=== PATIENT | male | born 1985 | race Caucasian/White ===

== ENCOUNTER 2020-04-28 06:38 | Emergency (ER) | payer SELFPAY ==
[2020-04-28 06:49] VITALS: BP 144/106; PULSE 86; RESP 20; TEMP 36.6; O2SAT 97
--- NOTE | 2020-04-28 07:07 | ED.GENADULT ---
HPI - General Adult General Chief complaint: Skin/Abscess/Foreign Body Stated complaint: fever Time Seen by Provider: 04/28/20 07:00 History of Present Illness HPI narrative: Patient is a 34-year-old gentleman who presents to emergency department with chief complaint of insect bite to forehead. The patient states that started a couple days ago noticed that he has redness and swelling in his forehead. Patient reports that there is been no drainage from the site states he has had a subjective fever at home but has not had an actual measured fever. Patient denies chest pain denies shortness of breath denies body aches denies lymphangitis. Related Data Allergies Allergy/AdvReac Type Severity Reaction Status Date / Time Penicillins Allergy Rash Verified 04/28/20 06:56 Review of Systems Review of Systems: Narrative: A 10 system review of systems was completed on the patient and is negative except for what is stated in the HPI. Nursing and ancillary documentation was reviewed. PMFSH Social History Social History Gender identity (if verbalized by the patient): Male Comments Patient has no significant past medical history Social history the patient denies illicit drug use Exam Narrative: Exam Narrative: GENERAL: Well-appearing, well-nourished, and in no acute distress. HEAD: Normocephalic, atraumatic. There is a area of erythema in the right forehead approximately quarter sized there is no fluctuance noted there is no purulent drainage. EYES: PERRLA and EOMI. ENT: Nares clear, no rhinorrhea or epistaxis. Mucous membranes moist. NECK: Supple. CHEST: Clear to auscultation. No respiratory distress. HEART: Regular rate and rhythm. No murmur heard. Normal peripheral pulses. ABDOMEN: Soft, nontender, nondistended, normal active bowel sounds. EXTREMITIES: Normal range of motion. No edema. SKIN: Warm, dry, no rash. NEURO: No focal deficits. Alert and oriented x3. PSYCH: Normal mood and affect. Course Vital Signs Vital signs: Vital Signs Temperature 36.6 C 04/28/20 06:49 Pulse Rate 86 04/28/20 06:49 Respiratory Rate 20 04/28/20 06:49 Blood Pressure 144/106 H 04/28/20 06:49 Pulse Oximetry 97 04/28/20 06:49 Temperature 36.6 C 04/28/20 06:49 Pulse Rate 86 04/28/20 06:49 Respiratory Rate 20 04/28/20 06:49 Blood Pressure 144/106 H 04/28/20 06:49 Pulse Oximetry 97 04/28/20 06:49 Medical Decision Making Vital Signs Vital Signs: Vital Signs Temperature 36.6 C 04/28/20 06:49 Pulse Rate 86 04/28/20 06:49 Respiratory Rate 20 04/28/20 06:49 Blood Pressure 144/106 H 04/28/20 06:49 Pulse Oximetry 97 04/28/20 06:49 Temperature 36.6 C 04/28/20 06:49 Pulse Rate 86 04/28/20 06:49 Respiratory Rate 20 04/28/20 06:49 Blood Pressure 144/106 H 04/28/20 06:49 Pulse Oximetry 97 04/28/20 06:49 Discharge Plan Discharge Clinical Impression: Cellulitis Qualifiers: Site of cellulitis: head Qualified Code(s): L03.811 - Cellulitis of head [any part, except face] Patient Disposition: Home, Self-Care Condition: Stable Instructions: Antibiotic Form, Cellulitis (ED) Prescriptions: New sulfamethoxazole-trimethoprim [Bactrim DS] 800-160 mg tablet 1 tablet PO Q12H Qty: 14 RF: 0 Follow-up/Referrals: PHYSICIAN,DRILL PRESS OPERATOR HELPER [Primary Care Provider] - Elliott Cali DO [Physician] - Time of Disposition: 07:10
[2020-04-28 07:22] VITALS: BP 144/98; RESP 14
== END 2020-04-28 07:20 | disposition home or self-care (01) ==
PROVIDERS: Emergency Provider Emergency Medicine
DX: L03.811 Cellulitis of head [any part, except face] (principal)
CPT/HCPCS: 99283

== ENCOUNTER 2020-04-30 22:31 | Emergency (ER) | payer SELFPAY ==
[2020-04-30 22:31] VITALS: BP 149/95; PULSE 101; RESP 20; TEMP 36.2; O2SAT 98
--- NOTE | 2020-04-30 22:50 | ED.SKABFB ---
HPI - Skin/Abscess/Foreign Bdy General Chief complaint: Skin/Abscess/Foreign Body Stated complaint: bug bite on head Time Seen by Provider: 04/30/20 22:42 Source: patient Mode of arrival: ambulatory Limitations: no limitations History of Present Illness HPI narrative: Patient is 34 years old white male presents with forehead the skin lesion started few days ago. Started on Bactrim 2 days ago in our emergency room. Back to our emergency room again because the redness is not getting better. Patient denies any fever, chills, nausea, vomiting. Patient believes what he have in his forehead is secondary to flea bites. Patient reports that he have a lot of fleas in his house. Related Data Allergies Allergy/AdvReac Type Severity Reaction Status Date / Time Penicillins Allergy Rash Verified 04/30/20 22:37 Review of Systems Review of Systems: Narrative: General appearance: Well-developed, well-nourished Skin: Normal color Head: Normocephalic, nontraumatic Eyes: Clear conjunctiva ENT: Oropharynx normal, ears normal, nose normal Neck: Supple, nontender Chest and respiratory: Airway patent, no respiratory distress, no accessory muscle use Heart: Regular rate/rhythm Abdomen: Soft, nontender, no organomegaly, quiet bowel sounds Vascular: Normal peripheral pulses, normal capillary refill. Musculoskeletal: Normal range of motion, nontender back Neurologic: Alert and oriented ?3, [employer] is normal as tested, no gross motor deficit PMFSH Social History Social History Gender identity (if verbalized by the patient): Male Exam Narrative: Exam Narrative: General appearance: Well-developed, well-nourished Skin: Normal color, forehead exam showed 1-1/2 cm vertical scab at the middle of the forehead surrounded by erythema, no discharge, positive fluctuation. Head: Normocephalic, nontraumatic Chest and respiratory: Airway patent, no respiratory distress, no accessory muscle use Heart: Regular rate/rhythm Neurologic: Alert and oriented ?3, [employer] is normal as tested, no gross motor deficit Course Course Emergency Course: Stable Vital Signs Vital signs: Vital Signs Temperature 36.2 C L 04/30/20 22:31 Pulse Rate 101 H 04/30/20 22:31 Respiratory Rate 20 04/30/20 22:31 Blood Pressure 149/95 H 04/30/20 22:31 Pulse Oximetry 98 04/30/20 22:31 Temperature 36.2 C L 04/30/20 22:31 Pulse Rate 101 H 04/30/20 22:31 Respiratory Rate 20 04/30/20 22:31 Blood Pressure 149/95 H 04/30/20 22:31 Pulse Oximetry 98 04/30/20 22:31 Procedures Abscess I/D Forehead: Date of Incision: 04/30/20 Time of Incision: 23:13 Local Anesthetic: lidocaine 1% and with epi Amount of anesthesia used (mL): 1 Technique: needle aspiration (Needle aspiration showed no purulent discharge) Irrigation: No MDM - Skin/Abscess/Foreign Bdy MDM Narrative Medical decision making narrative: Forehead cellulitis/impetigo is my concern. 18-gauge needle used for possible pus collection, with negative results. Critical Care Time Critical Care Time Critical Care Time: No Discharge Plan Discharge Clinical Impression: Cellulitis Qualifiers: Site of cellulitis: face Qualified Code(s): L03.211 - Cellulitis of face Patient Disposition: Home, Self-Care Condition: Stable Instructions: Cellulitis (ED)
[2020-04-30] MEDS: LIDO 2%/EPINEPHRINE 1:100,000 20 ML VIAL (23:08)
== END 2020-04-30 23:34 | disposition home or self-care (01) ==
PROVIDERS: Emergency Provider Emergency Medicine
DX: L03.211 Cellulitis of face (principal)
CPT/HCPCS: 10160; 99283

== ENCOUNTER 2021-03-12 23:41 | Emergency (ER) | payer SELFPAY ==
--- NOTE | ~2021-03-12 | CT_ITS ---
EXAMINATION: CT abdomen pelvis wo con DATE: 03/13/2021 00:40 INDICATION: Left flank pain. TECHNIQUE: Computed tomography (CT) of the abdomen and pelvis was performed without intravenous contr ast. Automated exposure control and iterative reconstruction technique were employed. The dose-length product was 514.94 mGy-cm. COMPARISON: None. FINDINGS: The visualized portions of the lung bases demonstrate minimal atelectasis. No pleural effus ion. The heart size is normal. No pericardial effusion. The liver, gallbladder, spleen, pancreas, adr enal glands, and right kidney are normal. There is a 2 mm stone in left kidney. There is mild left hy dronephrosis. There is a 3 mm stone in proximal left ureter. There is diverticulosis of the colon wit hout evidence of diverticulitis. There are no dilated loops of bowel. The appendix is normal. There a re no pathologically enlarged lymph nodes. There is no free intraperitoneal fluid. There is thoracolu mbar dextroscoliosis. IMPRESSION: 1. 3 mm stone in proximal left ureter with mild left hydronephrosis. 2. 2 mm nonobstructing left kidney stone. Reviewed, dictated and finalized at location A. ARE OFFICER
--- NOTE | ~2021-03-12 | XR_ITS ---
EXAMINATION: XR abdomen/kub 1V DATE: 03/13/2021 02:19 INDICATION: Left ureteral stone. TECHNIQUE: A supine view of the abdomen on 2 radiographs was obtained. COMPARISON: CT abdomen and pelvis 03/13/2021 FINDINGS: There are no dilated loops of bowel. IMPRESSION: 1. No visible urolithiasis. Reviewed, dictated and finalized at location A. TOOL MAKER IMPRESSION: 1. No visible urolithiasis.
[2021-03-12 23:48] VITALS: BP 154/111; PULSE 111; RESP 20; TEMP 36.8; O2SAT 100
[2021-03-13] MEDS: HYDROmorphone HCL INJ (*CRX) 1 MG/ML SYR IV PUSH (00:30)
[2021-03-13] MEDS: ONDANSETRON INJ 4 MG/2 ML VIAL IV PUSH (00:30)
[2021-03-13] MEDS: SODIUM CHLORIDE 0.9% IV 1,000 ML 150 ML IV CONT (00:30)
[2021-03-13 00:32] LABS: Basophils Absolute Auto 0.1 K/mm3 (0.0-0.1); Basophils Percent Auto 0.9 % (0.2-1.2); Eosinophils Absolute Auto 0.1 K/mm3 (0-0.3); Hematocrit 47.6 % (42.0-52.0); Immature Granulocyte Absolute 0.03 K/mm3 (0.00-0.031); Immature Granulocyte Percent A 0.2 % (0-0.5); Lymphocytes Absolute Auto 3.71 K/mm3 (0.9-3.2); Lymphocytes Percent Auto 26.8 % (18.3-44.2); Mean Corpuscular HGB Conc 35.7 g/dl (32-36); Mean Corpuscular Volume 89.5 fl (80-100); Mean Platelet Volume 12.4 fl (7.4-10.4); Monocytes Absolute Auto 0.7 K/mm3 (0.1-0.6); Monocytes Percent Auto 5.3 % (2.6-8.5); Neutrophils Absolute Auto 9.1 K/mm3 (1.3-6.7); Neutrophils Percent Auto 65.8 % (45.5-73.1); Platelet Count Result 280 k/mm3 (150-375); Red Blood Count 5.32 M/mm3 (4.6-6.20); Red Cell Distribution Width 12.9 % (11.5-14.5); White Blood Count 13.9 K/mm3 (4.5-10.0)
[2021-03-13 00:33] VITALS: BP 145/99; PULSE 113; RESP 22; O2SAT 99
--- NOTE | 2021-03-13 00:33 | PC.NURSE ---
Pt unable to provide urine sample at this time. Fluids infusing. Pt given urinal. Pt to CT scan via stretcher.
[2021-03-13 00:49] LABS: Alanine Aminotransferase 21 U/L (4-50); Alkaline Phosphatase 71 U/L (38-126); Anion Gap 15 mmol/L (8-16); Aspartate Amino Transferase 24 U/L (17-59); Bilirubin,Total 1.3 mg/dL (0.2-1.3); Blood Urea Nitrogen 12 mg/dL (9-20); Calcium 9.5 mg/dL (8.4-10.2); Carbon Dioxide 21 mmol/L (22-30); Chloride 100 mmol/L (98-107); Estimated CRCL calculation 59 ml/min; Estimated Glomerular Filt Rate 53; Glucose 147 mg/dL (65-110); Potassium 2.8 mmol/L (3.4-5.0); Sodium 136 mmol/L (137-145)
--- NOTE | 2021-03-13 01:15 | ED.BACK ---
HPI - Back Pain/Injury General Chief Complaint: Back Pain/Injury <Zaid Mace MD - Last Filed: 03/13/21 01:27> Stated Complaint: back pain <Zaid Mace MD - Last Filed: 03/13/21 01:27> Time Seen by Provider: 03/12/21 23:50 <Zaid Mace MD - Last Filed: 03/13/21 01:27> Source: patient <Zaid Mace MD - Last Filed: 03/13/21 01:27> Mode of arrival: ambulatory <Zaid Mace MD - Last Filed: 03/13/21 01:27> Limitations: no limitations <Zaid Mace MD - Last Filed: 03/13/21 01:27> History of Present Illness HPI Narrative: 35-year-old with no major medical problems here with complaints of severe left flank pain started about 1030 this morning. Patient states that his pain is intense associated with some nausea. He denies any fever or chills. 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 No previous history of kidney stones or back injury. <Zaid Mace MD - Last Filed: 03/13/21 01:27> MD elicited complaint: back pain <Zaid Mace MD - Last Filed: 03/13/21 01:27> Onset (ago): hour(s) (10) <Zaid Mace MD - Last Filed: 03/13/21 01:27> Timing: constant <Zaid Mace MD - Last Filed: 03/13/21 01:27> Severity: severe <Zaid Mace MD - Last Filed: 03/13/21 01:27> Similar Symptoms Previously: No <MD Vaishali Kraus Last Filed: 03/13/21 01:27> Quality: sharp <MD Vaishali Kraus Last Filed: 03/13/21 01:27> Location: left flank <MD Vaishali Kraus Last Filed: 03/13/21 01:27> Radiation: none <MD Vaishali Kraus Last Filed: 03/13/21 01:27> Exacerbating factors: none <Zaid Mace MD - Last Filed: 03/13/21:27> Associated symptoms: denies other symptoms <Zaid Mace MD - Last Filed: 03/13/21:27> Work related injury: No <Zaid Mace MD - Last Filed: 03/13/21:27> Related Data Allergies/Adverse Reactions: Allergies Allergy/AdvReac Type Severity Reaction Status Date / Time Penicillins Allergy Rash Verified 04/30/20 22:37 <Zaid aMce MD - Last Filed: 03/13/21:27> PMFSH Social History Social History: Social History Gender identity (if verbalized by the patient): Male <Zaid Mace MD - Last Filed: 03/13/21:27> Exam Narrative: GENERAL: Well-appearing, well-nourished, and in in moderate distress secondary to pain . HEAD: Normocephalic, atraumatic. EYES: PERRLA and EOMI.. NECK: Supple. CHEST: Clear to auscultation. No respiratory distress. HEART: Regular rate and rhythm. No murmur heard. Normal peripheral pulses. ABDOMEN: Soft, nontender, nondistended, normal active bowel sounds. Mild left CVA tenderness EXTREMITIES: Normal range of motion. No edema. SKIN: Extremely diaphoretic NEURO: No focal deficits. Alert and oriented x3. PSYCH: Normal mood and affect. <Zaid Mace MD - Last Filed: 03/13/21:27> Course Course Emergency Course: Patient was given IV Dilaudid and IV fluids. His pain has eased up but still continues to have moderate amount of pain. Informed him about his lab work, CT findings. I will give Toradol 15 mg. His potassium levels were 2.8 , will give IV potassium. <Zaid Mace MD - Last Filed: 03/13/21:27> Vital Signs Vital signs: Vital Signs Temperature 36.8 C 03/12/21 23:48 Pulse Rate 111 H 03/12/21 23:48 Respiratory Rate 20 03/12/21 23:48 Blood Pressure 154/111 H 03/12/21 23:48 Pulse Oximetry 100 03/12/21 23:48 Temperature 36.8 C 03/12/21 23:48 Pulse Rate 92 03/13/21 03:46 Respiratory Rate 15 03/13/21 03:46 Blood Pressure 152/99 H 03/13/21 03:46 Pulse Oximetry 99 03/13/21 03:46 <Zaid Mace MD - Last Filed: 03/13/21 01:27> MDM - Back Pain/Injury Lab Data Result diagrams: : 03/13/21 00:14 03/13/21 00:15 <Zaid Mace MD - Last Filed: 03/13/21 0
[2021-03-13] MEDS: KETOROLAC 15 MG/ML VIAL (*BKC) IV PUSH (01:19)
[2021-03-13] MEDS: SODIUM CHLORIDE 0.9% IV 1,000 ML 999 ML IV CONT (01:52)
[2021-03-13] MEDS: KCL 20 MEQ/SW 100 ML 100 ML 50 MEQ IVPB (01:53)
--- NOTE | 2021-03-13 02:16 | PC.NURSE ---
Pt to XRAY at this time.
[2021-03-13 02:32] VITALS: BP 150/107; PULSE 101; RESP 18; O2SAT 99
[2021-03-13 03:05] LABS: Add Urine Microscopic? YES; Appearance Urine Cloudy (Clear); Bacteria Urine Trace /hpf; Bilirubin Urine 1+ (Negative); Blood Urine 3+ (Negative); Color Urine Amber (Yellow); Glucose Urine UA Negative (Negative); Ketones Urine 1+ mg/dL (Negative); Leukocyte Esterase Ur Negative LEU/UL (Negative); Mucus Urine Heavy /lpf; Nitrate Urine Negative (Negative); Protein Urine 2+ mg/dL (Negative); RBC Urine 21-50 /hpf (0-2); Squamous Epithelial Cell Urine Occasional /hpf (Few)
[2021-03-13 03:13] LABS: Specific Grav Ur 1.031 (1.001-1.035)
[2021-03-13 03:46] VITALS: BP 152/99; PULSE 92; RESP 15; O2SAT 99
== END 2021-03-13 04:09 | disposition home or self-care (01) ==
PROVIDERS: Family Medicine; Emergency Provider Emergency Medicine
DX: N13.2 Hydronephrosis with renal and ureteral calculous obstruction (principal); E87.6 Hypokalemia
CPT/HCPCS: 36415; 74018; 74176; 80053; 81001; 85025; 87086; 96365; 96366; 96375; 99284; J1170; J1885; J2405; J3480; J7030